=== PATIENT | male | born 1995 | race Two or more races ===

== ENCOUNTER 2021-08-29 12:30 | Emergency (ER) | payer OTHER ==
[~2021-08-29] VITALS: Ht 172.7 cm; Wt 84.8 kg
--- NOTE | 2021-08-29 12:40 | NUR ---
PATIENT WAS MSE BY DR JOHNSON.
[2021-08-29] MEDS ORDERED: AMOXicillin 250 MG CAPSULE PO ONE (12:45)
[2021-08-29] MEDS ORDERED: AMOXicillin 250 MG CAPSULE ONE (12:56)
[2021-08-29] MEDS ORDERED: DEXAMETHASONE 4 MG TABLET ONE (12:56)
[2021-08-29] MEDS ORDERED: DEXAMETHASONE 0.5 MG TABLET PO ONE (13:00)
[2021-08-29] MEDS ORDERED: AMOX500C2 PO (13:52)
--- NOTE | 2021-08-29 13:55 | NUR ---
Dr Eldridge spoke with patient made him aware of test results.
--- NOTE | 2021-08-29 13:59 | NUR ---
Patient discharged to home in stable condition. Written and verbal after care instructions given. Patient verbalizes understanding of instructions. Stressed follow up or return to ER for worsening s/s.
[2021-08-29 14:02] VITALS: BP 125/77
== END 2021-08-29 14:00 | disposition home or self-care (01) ==
LOC: ER 12:30
DX: J02.9 Acute pharyngitis, unspecified (principal); Z20.822 Contact with and (suspected) exposure to COVID-19
CPT/HCPCS: 86403; 87070; 87426; 99283; J8540; A4663